=== PATIENT | male | born 1965 | race Caucasian/White ===

== ENCOUNTER → 2021-09-09 | Outpatient (CLI) | payer MEDICARE, MEDICAID ==
[~2021-09-09] MED LIST: CELE1CAP4 PO; DOCU5LIQ PO; HYDR-3490 PO; HYDR-3644 PO; LISI40TA52 PO; LYRI75CA PO; NIFE1TAB50 PO; NORCOTAB PO; OMEP20CA3 PO; OMEP40CA4 PO; PARO40TA PO; PARO40TA2 PO
== END ==
LOC: M LABSMTC 09:44
PROVIDERS: ATTEND Anesthesiology
DX: Z01.812 Encounter for preprocedural laboratory examination (principal); Z20.822 Contact with and (suspected) exposure to COVID-19

== ENCOUNTER 2021-09-14 11:23 | Day surgery (SDC) | payer MEDICARE, MEDICAID ==
[~2021-09-14] VITALS: Ht 182.9 cm; Wt 85.6 kg
[~2021-09-14 11:23] MED LIST changes: +NS 1,000 ML IV ONE
[2021-09-14] MEDS ORDERED: fentaNYL 100 MCG/2 ML INJECTION As Ordered ONE (12:05)
[2021-09-14] MEDS ORDERED: propofoL 200 MG/20 ML VIAL As Ordered ONE (12:06)
[2021-09-14 12:47] VITALS: BP 108/63
== END 2021-09-14 12:50 | disposition home or self-care (01) ==
LOC: M OPP 11:23
PROVIDERS: ATTEND Internal Medicine Gastroenterology
DX: Z12.11 Encounter for screening for malignant neoplasm of colon (principal); K57.30 Diverticulosis of large intestine without perforation or abscess without bleeding; K64.0 First degree hemorrhoids; K22.89 Other specified disease of esophagus; K44.9 Diaphragmatic hernia without obstruction or gangrene; K22.70 Barrett's esophagus without dysplasia; R12 Heartburn; Z79.899 Other long term (current) drug therapy
CPT/HCPCS: 43239; 88305; G0105; J3010

== ENCOUNTER → 2024-06-12 | Outpatient (CLI) | payer MEDICARE, MEDICAID ==
[~2024-06-12] MED LIST changes: -NS 1,000 ML IV ONE
[2024-06-12 14:43] LABS: THYROID STIMULATING HORMONE 2.086 uIU/ML (0.55-4.78); THYROXINE (T4) 4.9 UG/DL (4.5-10.9)
[2024-06-12 14:44] LABS: T UPTAKE 40.5 % (22.5-37.0)
[2024-06-12 14:45] LABS: FOLATE 11.88 NG/ML (>5.4)
== END ==
LOC: M PLALAB 10:10
PROVIDERS: ATTEND Psychiatry & Neurology Neurology
DX: E53.8 Deficiency of other specified B group vitamins (principal); G62.9 Polyneuropathy, unspecified; R25.1 Tremor, unspecified

== ENCOUNTER → 2024-11-08 | Outpatient (CLI) | payer MEDICARE, MEDICAID ==
[~2024-11-08] MED LIST changes: +PRIM50TA6 PO
== END ==
LOC: M PLAIMG 13:10
PROVIDERS: ATTEND Physician Assistant
DX: M50.00 Cervical disc disorder with myelopathy, unspecified cervical region (principal); M47.812 Spondylosis without myelopathy or radiculopathy, cervical region; M48.02 Spinal stenosis, cervical region

== ENCOUNTER → 2025-02-19 | Outpatient (CLI) | payer MEDICARE, MEDICAID ==
[~2025-02-19] VITALS: Ht 182.9 cm; Wt 129.7 kg
[~2025-02-19] MED LIST changes: +MIDAZOLAM INJ 2 MG/2 ML VIAL As Ordered ONE
[2025-02-19 09:15] VITALS: TEMP 97
[2025-02-19 10:55] VITALS: BP 134/86; O2SAT 97
== END ==
LOC: M RADPRO 08:59
PROVIDERS: ATTEND Neurological Surgery
DX: M50.21 Other cervical disc displacement, high cervical region (principal); M50.221 Other cervical disc displacement at C4-C5 level; M50.222 Other cervical disc displacement at C5-C6 level; M50.223 Other cervical disc displacement at C6-C7 level; M50.23 Other cervical disc displacement, cervicothoracic region
CPT/HCPCS: 72141; J2250